=== PATIENT | male | born 1980 | race Caucasian/White ===

== ENCOUNTER 2017-06-13 21:47 | Emergency (ER) | payer OTHER ==
[~2017-06-13] VITALS: Ht 180.3 cm; Wt 104.5 kg
[~2017-06-13 21:47] MED LIST: ASPI325T PO; GABA300 PO; MIDO2.5T4 PO
[2017-06-13 22:00] VITALS: BP 171/112; PULSE 85; RESP 18; TEMP 98.4; O2SAT 98
[2017-06-13] MEDS ORDERED: testosterone (22:12)
[2017-06-13] MEDS ORDERED: ASPI-183 PO (22:12)
[2017-06-13] MEDS ORDERED: FLUT1INH INH (22:12)
[2017-06-13] MEDS ORDERED: GABA300C5 PO (22:12)
[2017-06-13] MEDS ORDERED: MIDO5TAB PO (22:12)
[2017-06-13] MEDS ORDERED: SERT-132 PO (22:12)
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
[2017-06-13] MEDS ORDERED: TETANUS/DIPHTHERIA TOXOID ADULT 0.5 ML VIAL IM ONE (22:30)
[2017-06-13] MEDS ORDERED: ACETAMINOPHEN 325 MG TAB PO ONE (22:30)
== END 2017-06-13 22:37 | disposition home or self-care (01) ==
LOC: PHEFT 21:47
DX: S80.211A Abrasion, right knee, initial encounter (principal); S50.811A Abrasion of right forearm, initial encounter; S60.511A Abrasion of right hand, initial encounter; V09.20XA Pedestrian injured in traffic accident involving unspecified motor vehicles, initial encounter; Y35.891A Legal intervention involving other specified means, law enforcement official injured, initial encounter; Y93.89 Activity, other specified; Y99.0 Civilian activity done for income or pay; Z23 Encounter for immunization
CPT/HCPCS: 90471; 90714